=== PATIENT | female | born 1980 | race Caucasian/White ===

== ENCOUNTER 2018-04-28 19:27 | Emergency (ER) | payer OTHER ==
[~2018-04-28] VITALS: Ht 165.1 cm; Wt 77.1 kg
[2018-04-28 19:41] VITALS: BP 115/93
== END 2018-04-28 20:08 | disposition home or self-care (01) ==
LOC: ER 19:29
DX: S29.012A Strain of muscle and tendon of back wall of thorax, initial encounter (principal); M54.6 Pain in thoracic spine; F32.9 Major depressive disorder, single episode, unspecified; J45.909 Unspecified asthma, uncomplicated; F10.10 Alcohol abuse, uncomplicated; Y90.9 Presence of alcohol in blood, level not specified; Z88.0 Allergy status to penicillin; F17.210 Nicotine dependence, cigarettes, uncomplicated; X50.0XXA Overexertion from strenuous movement or load, initial encounter; Y93.89 Activity, other specified; Y92.89 Other specified places as the place of occurrence of the external cause; Y99.8 Other external cause status
CPT/HCPCS: 99282; A4606; Z7610

== ENCOUNTER 2018-06-05 18:17 | Emergency (ER) | payer OTHER ==
[~2018-06-05] VITALS: Ht 165.1 cm; Wt 84.4 kg
[2018-06-05 19:38] VITALS: BP 124/70
--- NOTE | 2018-06-05 19:39 | NUR ---
Patient discharged to home in stable condition. Written and verbal after care instructions given. Patient verbalizes understanding of instruction.
== END 2018-06-05 19:40 | disposition home or self-care (01) ==
LOC: ER 18:19
DX: N39.0 Urinary tract infection, site not specified (principal); J45.909 Unspecified asthma, uncomplicated; F32.9 Major depressive disorder, single episode, unspecified; F17.210 Nicotine dependence, cigarettes, uncomplicated; Z88.0 Allergy status to penicillin
CPT/HCPCS: 99283; A4606; Z7610

== ENCOUNTER 2018-07-27 10:05 | Emergency (ER) | payer OTHER ==
[~2018-07-27] VITALS: Ht 157.5 cm; Wt 88.7 kg
[2018-07-27 10:29] VITALS: BP 125/87
== END 2018-07-27 10:51 | disposition home or self-care (01) ==
LOC: ER 10:05
DX: R51 Headache (principal); J45.909 Unspecified asthma, uncomplicated; F32.9 Major depressive disorder, single episode, unspecified; F10.10 Alcohol abuse, uncomplicated; F17.200 Nicotine dependence, unspecified, uncomplicated; Y90.9 Presence of alcohol in blood, level not specified; Z88.0 Allergy status to penicillin
CPT/HCPCS: 99282; A4606; Z7610

== ENCOUNTER 2018-08-06 08:12 | Emergency (ER) | payer OTHER ==
[~2018-08-06] VITALS: Ht 165.1 cm; Wt 88.9 kg
--- NOTE | 2018-08-06 09:06 | NUR ---
PELVIC EXAM DONE BY DR JIMÉNEZ WITH Heike FREEMAN RN SCADA TECHNICIAN,TOLERATED WELL
--- NOTE | 2018-08-06 09:15 | NUR ---
PT BIB SELF C/O DYSURIA, RT FLANK PAIN W/UTI 1 WK AGO. TAKING KEFLEX NO RELIEF & ALSO C/O VAGINAL SWELLING & ITCHING. PT AAOX3, VSS. DENIES N/V/D OR ANY DISCOMFORT @ THIS TIME. PT SEEN & EVAL'D BY DR. WILKS. WILL CONT TO MONITOR.
[2018-08-06 09:23] LABS: APPEARANCE,URINE CLEAR (CLEAR); BILIRUBIN,URINE NEGATIVE (NEGATIVE); BLOOD, URINE TRACE-INTA Ery/uL (NEGATIVE); KETONES,URINE NEGATIVE (NEGATIVE); LEUKOCYTE ESTERASE ,URINE 2+ (NEGATIVE); NITRITE, URINE NEGATIVE (NEGATIVE); PROTEIN,URINE NEGATIVE (NEGATIVE); UGLUCOSE NEGATIVE (NEGATIVE); UROBILINOGEN,URINE 0.2 EU/dL (0.2)
[2018-08-06 09:24] LABS: COLOR,URINE STRAW (YELLOW)
[2018-08-06 09:35] LABS: BACTERIA,URINE Few /HPF (None Seen)
--- NOTE | 2018-08-06 09:46 | NUR ---
Patient discharged to home in stable condition. Written and verbal after care instructions given. Patient verbalizes understanding of instruction.
[2018-08-06 09:48] VITALS: BP 115/72
== END 2018-08-06 10:03 | disposition home or self-care (01) ==
LOC: ER 08:17
DX: R10.2 Pelvic and perineal pain (principal); J45.909 Unspecified asthma, uncomplicated; F32.9 Major depressive disorder, single episode, unspecified; F17.210 Nicotine dependence, cigarettes, uncomplicated; F10.10 Alcohol abuse, uncomplicated; Z88.0 Allergy status to penicillin
CPT/HCPCS: 81001; 84703; 99284; A4606; Z7610; 81000-TC; 87086-TC

== ENCOUNTER 2018-12-10 12:32 | Emergency (ER) | payer MEDICAID, OTHER ==
[~2018-12-10] VITALS: Ht 165.1 cm; Wt 90.3 kg
[2018-12-10 13:00] VITALS: BP 120/69
== END 2018-12-10 13:42 | disposition home or self-care (01) ==
LOC: ER 12:33
DX: B34.9 Viral infection, unspecified (principal); J02.8 Acute pharyngitis due to other specified organisms; J45.909 Unspecified asthma, uncomplicated; F32.9 Major depressive disorder, single episode, unspecified; F10.10 Alcohol abuse, uncomplicated; F17.210 Nicotine dependence, cigarettes, uncomplicated; Y90.9 Presence of alcohol in blood, level not specified; Z88.0 Allergy status to penicillin
CPT/HCPCS: 99283; A4606; Z7502

== ENCOUNTER 2018-12-14 11:27 | Emergency (ER) | payer MEDICAID ==
[~2018-12-14] VITALS: Ht 165.1 cm; Wt 63.5 kg
[2018-12-14 11:44] VITALS: BP 113/80
[2018-12-14] MEDS ORDERED: ALBUTEROL SULFATE 8 GM HFA.AER.AD IH ONE (12:00)
[2018-12-14] MEDS ORDERED: ALBUTEROL FS 2.5 MG/0.5 ML VIAL.NEB NEB STA (12:07)
[2018-12-14] MEDS ORDERED: ALBUTEROL FS 2.5 MG/3 ML VIAL.NEB ONE (12:11)
[2018-12-14] MEDS ORDERED: DEXAMETHASONE 1 MG TABLET PO ONE (13:00)
[2018-12-14] MEDS ORDERED: DEXAMETHASONE 4 MG TABLET ONE (13:07)
--- NOTE | 2018-12-14 13:35 | NUR ---
Patient discharged to home in stable condition. Written and verbal after care instructions given. Patient verbalizes understanding of instruction.
== END 2018-12-14 13:36 | disposition home or self-care (01) ==
LOC: ER 11:29
DX: J40 Bronchitis, not specified as acute or chronic (principal); F17.210 Nicotine dependence, cigarettes, uncomplicated; F32.9 Major depressive disorder, single episode, unspecified; Z88.0 Allergy status to penicillin
CPT/HCPCS: 71046; 94640; 99283; A4606; J8540

== ENCOUNTER 2019-01-10 11:40 | Emergency (ER) | payer MEDICAID ==
[~2019-01-10] VITALS: Ht 165.1 cm; Wt 90.7 kg
--- NOTE | 2019-01-10 11:46 | NUR ---
BIB SELKimmy W C/O LEFT ARM SHAKING x 2 WEEKS, TO ER BED 1, AWAITING MD HAYNSE
--- NOTE | 2019-01-10 12:00 | NUR ---
DR MIGUEL AT BEDSIDE FOR EVAL.
--- NOTE | 2019-01-10 12:08 | NUR ---
Patient discharged to home in stable condition. Written and verbal after care instructions given. Patient verbalizes understanding of instruction.
[2019-01-10 12:09] VITALS: BP 138/92
== END 2019-01-10 12:24 | disposition home or self-care (01) ==
LOC: ER 11:43
DX: F10.239 Alcohol dependence with withdrawal, unspecified (principal); F41.9 Anxiety disorder, unspecified; J45.909 Unspecified asthma, uncomplicated; F32.9 Major depressive disorder, single episode, unspecified; F17.210 Nicotine dependence, cigarettes, uncomplicated; Y90.9 Presence of alcohol in blood, level not specified; Z88.0 Allergy status to penicillin
CPT/HCPCS: 99283; A4606

== ENCOUNTER 2019-03-07 11:51 | Emergency (ER) | payer MEDICAID ==
[~2019-03-07] VITALS: Ht 165.1 cm; Wt 74.8 kg
--- NOTE | 2019-03-07 12:15 | NUR ---
BIBSELF FOR R SIDED PELVIC PAIN; PT AAOX4, PT ON MONITOR, PT AMBULATORY, VSS, NAD NOTED, PENDING MD HAYNES
[2019-03-07] MEDS ORDERED: KETOROLAC TROMETHAMINE INJ 30 MG/ML VIAL IV ONE (12:30)
[2019-03-07] MEDS ORDERED: IV NS 0.9% 1,000 ML BAG IV ONE (12:30)
[2019-03-07 12:37] LABS: BASOPHILS # (AUTO) 0.2 /CMM (0.0-0.2); BASOPHILS % (AUTO) 1.3 % (0.0-2.0); EOSINOPHILS % (AUTO) 1.5 % (0.0-6.0); HEMATOCRIT 40 % (33-45); HEMOGLOBIN 13.3 g/dL (11.5-14.8); LYMPHOCYTES # (AUTO) 2.8 /CMM (0.8-4.8); LYMPHOCYTES % (AUTO) 22.2 % (20.0-44.0); MEAN CORPUSCULAR HGB CONC 34 g/dl (31.0-36.0); MEAN CORPUSCULAR VOLUME 84 fL (82-100); MONOCYTES % (AUTO) 7.9 % (2.0-12.0); NEUTROPHILS # (AUTO) 8.4 /CMM (1.8-8.9); NEUTROPHILS % (AUTO) 67.1 % (43.0-81.0); PLATELET COUNT (AUTO) 374 /CMM (150-450); WHITE BLOOD COUNT (AUTO) 12.5 K/uL (4.3-11.0)
[2019-03-07 12:44] LABS: CALCIUM, SERUM 8.7 mg/dL (8.5-10.1); CREATININE 0.8 mg/dL (0.6-1.3); POTASSIUM 3.6 mmol/L (3.5-5.1)
[2019-03-07 12:45] LABS: APPEARANCE,URINE Clear (CLEAR); BILIRUBIN,URINE SMALL (NEGATIVE); BLOOD, URINE Trace-intact Ery/uL (NEGATIVE); COLOR,URINE Yellow (YELLOW); KETONES,URINE 15 (NEGATIVE); LEUKOCYTE ESTERASE ,URINE Negative (NEGATIVE); NITRITE, URINE Negative (NEGATIVE); PROTEIN,URINE Trace mg/dl (NEGATIVE); UGLUCOSE Negative (NEGATIVE); UROBILINOGEN,URINE 0.2 EU/dL (0.2)
[2019-03-07 12:48] LABS: BACTERIA,URINE Few /HPF (None Seen); MUCUS,URINE Few /LPF (None Seen); SQUAMOUS EPITHELIAL CELL,UR Many /HPF (None Seen); WBC,URINE 0-2 /HPF (0-3)
[2019-03-07 12:55] LABS: ALBUMIN 3.5 g/dL (3.4-5.0); BILIRUBIN,TOTAL 0.3 mg/dL (0.2-1.0); TOTAL PROTEIN, SERUM 7.6 g/dL (6.4-8.2)
--- NOTE | 2019-03-07 15:05 | NUR ---
Patient discharged to home in stable condition. Written and verbal after care instructions given. Patient verbalizes understanding of instruction. IV removed. Catheter intact and site benign. Pressure and 4x4 applied to site. No bleeding noted.
[2019-03-07 15:17] VITALS: BP 132/80
== END 2019-03-07 15:20 | disposition home or self-care (01) ==
LOC: ER 11:51
DX: R10.2 Pelvic and perineal pain (principal); F10.10 Alcohol abuse, uncomplicated; F17.210 Nicotine dependence, cigarettes, uncomplicated; E66.9 Obesity, unspecified; Y90.9 Presence of alcohol in blood, level not specified; Z88.0 Allergy status to penicillin
CPT/HCPCS: 36415; 74176; 76856; 80048; 80076; 81001; 83690; 84703; 85025; 96374; 99284; J1885; J7030; 81000-TC

== ENCOUNTER 2019-05-06 12:46 | Emergency (ER) | payer MEDICAID ==
[~2019-05-06] VITALS: Ht 162.6 cm; Wt 85.9 kg
--- NOTE | 2019-05-06 13:05 | NUR ---
PT BIBSELF FOR H/A UNRELIVED BY OTC MEDS; PT AAOX4, -SOB, NAD NOTED, VSS, PENDING MD HAYNES
[2019-05-06 13:15] LABS: BASOPHILS # (AUTO) 0.1 /CMM (0.0-0.2); BASOPHILS % (AUTO) 1.1 % (0.0-2.0); EOSINOPHILS % (AUTO) 2.9 % (0.0-6.0); HEMATOCRIT 38 % (33-45); HEMOGLOBIN 12.5 g/dL (11.5-14.8); LYMPHOCYTES # (AUTO) 2.4 /CMM (0.8-4.8); MEAN CORPUSCULAR HGB CONC 33 g/dl (31.0-36.0); MEAN CORPUSCULAR VOLUME 83 fL (82-100); MONOCYTES % (AUTO) 9.2 % (2.0-12.0); NEUTROPHILS % (AUTO) 64.8 % (43.0-81.0); PLATELET COUNT (AUTO) 343 /CMM (150-450); RED BLOOD CELL COUNT(AUTO) 4.57 MIL/uL (4.0-5.2); WHITE BLOOD COUNT (AUTO) 10.8 K/uL (4.3-11.0)
[2019-05-06] MEDS ORDERED: ACETAMINOPHEN ES 500 MG TABLET ONE (13:16)
[2019-05-06 13:23] LABS: CALCIUM, SERUM 8.5 mg/dL (8.5-10.1); CREATININE 0.7 mg/dL (0.6-1.3); POTASSIUM 4.4 mmol/L (3.5-5.1)
[2019-05-06] MEDS ORDERED: KETOROLAC TROMETHAMINE INJ 30 MG/ML VIAL IV ONE (13:30)
[2019-05-06] MEDS ORDERED: METOCLOPRAMIDE HCL 10 MG/2 ML VIAL IV ONE (13:30)
[2019-05-06] MEDS ORDERED: diphenhydrAMINE HCL 50 MG/ML VIAL IV ONE (13:30)
[2019-05-06] MEDS ORDERED: IV NS 0.9% 1,000 ML BAG IV ONE (13:30)
[2019-05-06] MEDS ORDERED: ACETAMINOPHEN ES 500 MG TABLET PO ONE (13:30)
[2019-05-06 13:54] VITALS: BP 123/70
--- NOTE | 2019-05-06 13:55 | NUR ---
Patient discharged to home in stable condition. Written and verbal after care instructions given. Patient verbalizes understanding of instruction.
== END 2019-05-06 13:56 | disposition home or self-care (01) ==
LOC: ER 12:48
DX: R51 Headache (principal); J45.909 Unspecified asthma, uncomplicated; F17.210 Nicotine dependence, cigarettes, uncomplicated; F32.9 Major depressive disorder, single episode, unspecified; Z88.0 Allergy status to penicillin
CPT/HCPCS: 36415; 80048-TC; 84703-TC; 85025-TC; 85730-TC

== ENCOUNTER 2019-06-21 10:25 | Emergency (ER) | payer MEDICAID ==
[~2019-06-21] VITALS: Ht 165.1 cm; Wt 86.2 kg
--- NOTE | 2019-06-21 10:45 | NUR ---
Patient came in to the ER, noticed redness on the upper chest, itching, denies any pain , no SOB. On room air, breathing evenly and unlabored. Kept comfortable, will continue to monitor accordingly.
[2019-06-21] MEDS ORDERED: predniSONE 20 MG TABLET ONE (11:05)
[2019-06-21] MEDS ORDERED: predniSONE 10 MG TABLET ONE (11:05)
[2019-06-21] MEDS ORDERED: diphenhydrAMINE HCL 25 MG CAPSULE ONE (11:05)
[2019-06-21] MEDS: predniSONE 50 MG TABLET PO ONE (11:10)
[2019-06-21] MEDS: diphenhydrAMINE HCL 25 MG CAPSULE PO ONE (11:10)
[2019-06-21 11:15] VITALS: BP 129/84
--- NOTE | 2019-06-21 11:16 | NUR ---
Patient discharged to home in stable condition. Written and verbal after care instructions given. Patient verbalizes understanding of instruction.
== END 2019-06-21 11:16 | disposition home or self-care (01) ==
LOC: ER 10:29
DX: T78.40XA Allergy, unspecified, initial encounter (principal); F17.210 Nicotine dependence, cigarettes, uncomplicated; J45.909 Unspecified asthma, uncomplicated; F32.9 Major depressive disorder, single episode, unspecified; Z88.0 Allergy status to penicillin; X58.XXXA Exposure to other specified factors, initial encounter
CPT/HCPCS: 99283; J7512 ×2; Q0163

== ENCOUNTER 2019-10-11 11:58 | Emergency (ER) | payer MEDICAID ==
[~2019-10-11] VITALS: Ht 165.1 cm; Wt 83.0 kg
[2019-10-11] MEDS ORDERED: ACETAMINOPHEN 325 MG TABLET PO ONE (12:30)
[2019-10-11] MEDS ORDERED: ACETAMINOPHEN ES 500 MG TABLET ONE (13:00)
--- NOTE | 2019-10-11 13:02 | NUR ---
patient came in to the ER c/o left shoulder pain x 7 days. On room air,, breathing evenly and unlabored, kept comfortable, will continue to monitor accordingly.
[2019-10-11 13:52] VITALS: BP 115/71
--- NOTE | 2019-10-11 13:52 | NUR ---
Patient discharged to home in stable condition. Written and verbal after care instructions given. Patient verbalizes understanding of instruction.
== END 2019-10-11 13:53 | disposition home or self-care (01) ==
LOC: ER 11:58
DX: M25.512 Pain in left shoulder (principal); J45.909 Unspecified asthma, uncomplicated; F17.210 Nicotine dependence, cigarettes, uncomplicated; F32.9 Major depressive disorder, single episode, unspecified; Z88.0 Allergy status to penicillin
CPT/HCPCS: 73030-TC

== ENCOUNTER 2019-11-29 12:08 | Emergency (ER) | payer MEDICAID ==
[~2019-11-29] VITALS: Ht 167.6 cm; Wt 68.0 kg
[2019-11-29 12:19] VITALS: BP 134/87
[2019-11-29] MEDS ORDERED: IBUPROFEN 600 MG TABLET PO ONE ×2 (12:30→12:39)
--- NOTE | 2019-11-29 13:01 | NUR ---
JUSTEN MELO PHONE # [phone]
--- NOTE | 2019-11-29 13:13 | NUR ---
PT. VERBALIZED UNDERSTANDING OF AFTERCARE INSTRUCTIONS.Patient discharged to home in stable condition. Written and verbal after care instructions given. Patient verbalizes understanding of instruction.
== END 2019-11-29 13:15 | disposition home or self-care (01) ==
LOC: ER 12:12
DX: J06.9 Acute upper respiratory infection, unspecified (principal); J45.909 Unspecified asthma, uncomplicated; F32.9 Major depressive disorder, single episode, unspecified; F17.210 Nicotine dependence, cigarettes, uncomplicated; Z88.0 Allergy status to penicillin

== ENCOUNTER 2023-02-28 10:35 | Emergency (ER) | payer MEDICAID, OTHER ==
[~2023-02-28] VITALS: Ht 165.1 cm; Wt 94.3 kg
--- NOTE | 2023-02-28 10:55 | NUR ---
steven c/o dizziness from yesterday." feels like room turns upside down "
--- NOTE | 2023-02-28 11:00 | NUR ---
MD AT BED SIDE AT [facility], FOUND NOTHING ON BOTH EARS .
[2023-02-28] MEDS ORDERED: CETI-108 PO (11:01)
--- NOTE | 2023-02-28 11:10 | NUR ---
Patient discharged to home in stable condition. Written and verbal after care instructions given. Patient verbalizes understanding of instruction.
[2023-02-28 11:12] VITALS: BP 121/71
== END 2023-02-28 11:12 | disposition home or self-care (01) ==
LOC: ER 10:57
DX: H83.8X1 Other specified diseases of right inner ear (principal); J45.909 Unspecified asthma, uncomplicated; F32.A Depression, unspecified; F17.200 Nicotine dependence, unspecified, uncomplicated; Z88.0 Allergy status to penicillin; Z88.8 Allergy status to other drugs, medicaments and biological substances